=== PATIENT | male | born 1990 | race African-American/Black ===

== ENCOUNTER 2018-08-05 22:19 | Emergency (ER) | payer OTHER ==
[~2018-08-05] VITALS: Ht 182.9 cm; Wt 113.4 kg
--- NOTE | 2018-08-05 22:23 | NUR ---
ED Nurse Note: pt brought in by [employer] c/o abd pain, pt states he ate something wrong and started having pain, -n/v/d, no tenderness, abd soft nontender and nondistended, will cont monitor.
--- NOTE | 2018-08-05 22:23 | Emergency Room Report ---
History of Present Illness General Chief Complaint: To Be Triaged Source: Patient Present Illness HPI Is a 28-year-old male with no past medical history. Brought in by police for medical clearance. He said earlier today he ate a sandwich and afterward has some cramping pain and diarrhea. He asked for Pepto-Bismol from the nursing staff in custodial. So they sent him here to be evaluated. Patient said he felt better now. No pain. Denies any other complaint. Patient History Past Medical History: see triage record, old chart reviewed Past Surgical History: other Pertinent Family History: none Social History: Denies: smoking Immunizations: other Reviewed Nursing Documentation: PMH: Agreed; PSxH: Agreed Review of Systems Eye: Denies: eye pain, blurred vision ENT: Denies: ear pain, nose congestion, throat swelling Respiratory: Denies: cough, shortness of breath Cardiovascular: Denies: chest pain, palpitations Gastrointestinal: Reports: abdominal pain; Denies: diarrhea, nausea, vomiting Musculoskeletal: Denies: back pain, joint pain Skin: Denies: rash Neurological: Denies: headache, numbness Endocrine: Denies: increased thirst, increased urine Hematologic/Lymphatic: Denies: easy bruising All Other Systems: negative except mentioned in HPI Physical Exam [id number] EP Interpretation: reviewed, normal General Appearance: well appearing, no apparent distress, alert Head: normocephalic, atraumatic Eyes: bilateral eye PERRL, bilateral eye EOMI ENT: hearing grossly normal, normal pharynx Neck: full range of motion, supple, no meningismus Respiratory: chest non-tender, lungs clear, normal breath sounds Cardiovascular #1: regular rate, rhythm, no murmur Gastrointestinal: normal bowel sounds, non tender, no mass, no organomegaly, no bruit, non-distended Musculoskeletal: back normal, gait/station normal, normal range of motion Psychiatric: mood/affect normal Skin: warm/dry Medical Decision Making Diagnostic Impression: Primary Impression: Abdominal pain Qualified Codes: R10.84 - Generalized abdominal pain Additional Impression: Examination for medicolegal reason ER Course Patient presents with one episode abdominal pain that resolved. This may be secondary to a foodborne illness. He is asymptomatic right now. He is medically clear to be sent back to custodial. Status: unchanged Disposition: D/C TO LAW ENFORCEMENT IN [facility]UST Condition: Stable Additional Instructions: Follow-up with your doctor as needed. Return if worse. Anant Patel MD Aug 05, 2018 22:23
[2018-08-05 22:29] VITALS: BP 139/77
--- NOTE | 2018-08-05 22:31 | NUR ---
ED Nurse Note: pt cleared to be d/c per ERMD, pt discharge/aftercare instruction provided, pt cleared to book per ERMD, pt left w/ officers, pt vss, ambulatory w/ steady gait.
--- NOTE | 2018-08-05 22:31 | NUR ---
ED Nurse Note: pt states pain resolved, no pain anymore.
[2018-08-05 22:33] VITALS: BP 132/87
== END 2018-08-05 22:34 ==
LOC: EMR 22:28
DX: R10.9 Unspecified abdominal pain (principal); R19.7 Diarrhea, unspecified; Z04.89 Encounter for examination and observation for other specified reasons
CPT/HCPCS: 99282